=== PATIENT | female | born 2000 | race Caucasian/White ===

== ENCOUNTER 2024-04-12 15:02 | Emergency (ER) | payer OTHER ==
[~2024-04-12] VITALS: Ht 162.6 cm; Wt 115.9 kg
[2024-04-12 15:08] VITALS: TEMP 98.7
[2024-04-12 15:44] LABS: BASO % 0.1 % (0.0-2.0); EOS # 0.2 K/mm3 (0.0-0.7); EOS % 1.3 % (0.0-4.0); GRAN # 8.5 K/mm3 (1.4-6.5); GRAN % 72.7 % (42.2-75.2); HEMATOCRIT 41.7 % (37.0-47.0); HEMOGLOBIN 14.1 g/dl (12.5-16.0); LYMPH # 2.5 K/mm3 (1.2-3.4); LYMPH % 21.6 % (20.0-51.0); MEAN CELL VOLUME 87 fl (80.0-100.0); MEAN CORPUSCULAR HEMOGLOBIN 29 pg (27-31); MEAN CORPUSCULAR HGB CONC 34 g/dl (33.0-37.0); MEAN PLATELET VOLUME 9.3 fl (7.4-10.4); MONO # 0.5 K/mm3 (0.1-0.6); MONO % 3.9 % (1.7-9.3); PLATELET COUNT 299 K/mm3 (130-400); RED BLOOD COUNT 4.79 M/mm3 (4.10-5.30); REDCELL DISTRIBUTION WIDTH-CV 13.2 % (11.5-14.5)
[2024-04-12 15:45] LABS: URINE APPEARANCE CLEAR (CLEAR/HAZY); URINE BLOOD NEGATIVE (NEGATIVE); URINE COLOR YELLOW (YELLOW); URINE GLUCOSE NEGATIVE (NEGATIVE); URINE KETONE NEGATIVE (NEGATIVE); URINE NITRATE NEGATIVE (NEGATIVE); URINE PROTEIN(semi-quant) NEGATIVE (NEGATIVE); URINE UROBILINOGEN 0.2 E.U/dL (0.2-1.0)
[2024-04-12] MEDS ORDERED: NS 1,000 ML IV ONE (15:45)
[2024-04-12 16:02] LABS: BILIRUBIN,TOTAL 0.2 mg/dL (0.2-1.2); CALCIUM 9.8 mg/dL (8.4-10.2); CREATININE, serum 0.69 mg/dL (0.57-1.11); MAGNESIUM 1.9 mg/dL (1.6-2.6); POTASSIUM 3.9 mEq/L (3.5-4.5); TOTAL PROTEIN 7.5 g/dl (6.2-8.1)
[2024-04-12 16:08] LABS: TROPONIN-I 0.013 ng/mL (0.00-0.033)
[2024-04-12 16:08] LABS: COLLECTION METHOD CLEAN CATCH
[2024-04-12] MEDS ORDERED: Ketorolac 15 MG/ML VIAL IV ONE (17:15)
[2024-04-12] MEDS ORDERED: methylPREDNISolone Sod Succ 125 MG/2 ML VIAL IV ONE (17:15)
[2024-04-12] MEDS ORDERED: Ondansetron 4 MG/2 ML VIAL IV ONE (17:15)
[2024-04-12] MEDS ORDERED: diphenhydrAMINE 50 MG/ML 1 ML VIAL IV ONE (18:15)
[2024-04-12] MEDS ORDERED: PREDNISONE50 MG PO (19:06)
[2024-04-12] MEDS ORDERED: ZOFRAN ODT4 MG PO (19:06)
[2024-04-12 19:44] VITALS: BP 114/68; PULSE 82
== END 2024-04-12 19:44 | disposition home or self-care (01) ==
LOC: COL.ER 15:02
PROVIDERS: Emergency Medicine
DX: R53.81 Other malaise (principal); R53.83 Other fatigue; R51.9 Headache, unspecified
CPT/HCPCS: J1200; J1885; J2405; J2765; J2919; J7030

== ENCOUNTER → 2024-04-13 | Outpatient (CLI) | payer OTHER ==
[~2024-04-13] MED LIST: PREDNISONE50 MG PO; ZOFRAN ODT4 MG PO
== END ==
LOC: COL.RAD 05:46
DX: K76.9 Liver disease, unspecified (principal)